=== PATIENT | male | born 1950 | race Caucasian/White ===

== ENCOUNTER 2019-02-03 10:55 | Observation (INO) ==
[2019-02-03 14:06] LABS: Basophils # 0.1 10*3/uL (0.0-0.2); Basophils % 0.6 % (0.0-0.8); Eosinophils # 0.2 10*3/uL (0.0-0.87); Eosinophils % 1.6 % (0.00-10.9); Hemoglobin 15.8 GM/DL (14.0-18.0); Immature Granulocytes % 0.4 %; Immature Granulocytes Absolute 0.04 #; Lymphocytes # 3.1 10*3/uL (1.4-4.0); Lymphocytes % 27.8 % (21.2-54.2); Mean Corpuscular HGB Conc 32.2 GM/DL (32-36); Mean Platelet Volume 11.5 FL (9.6-12.0); Monocytes % 6.3 % (1.7-12.7); Neutrophils % 63.3 % (38.7-73.9); Platelet Count 193 T/CUMM (130-400); Red Blood Count 5.57 MC/CUMM (3.8-5.5); Red Cell Distribution Width 14.4 % (9.3-17.3); White Blood Count 11.3 T/CUMM (4-12)
[2019-02-03 14:17] LABS: PT Patient Result 10.8 SECS (9.6-12.2); Partial Thromboplastin Time 28.3 SECS (20.8-36.0)
[2019-02-03 14:27] LABS: Alanine Aminotransferase 35 U/L (16-61); Alkaline Phosphatase 80 U/L (45-117); Aspartate Amino Transferase 24 U/L (0-37); Bilirubin,Total < 0.39 MG/DL (0.2-1.0); Blood Urea Nitrogen 15 MG/DL (7-18); CKMB % 2.7 %; Estimated Glom Filtration Rate 112 ML/MIN; Glucose 69 MG/DL (74-106); Total Protein 7.9 G/DL (6.4-8.3); Troponin I < 0.015 NG/ML (0.00-0.045)
[2019-02-03] MEDS ORDERED: NICOTINE 21 MG/24 HR PATCH TRANSDERM PRN (16:45)
[2019-02-03] MEDS ORDERED: DEXTROSE 50% 25 GM/50 ML VIAL IV PRN (16:45)
[2019-02-03] MEDS ORDERED: GLUCAGON 1 MG VIAL IM PRN (16:45)
[2019-02-03] MEDS ORDERED: ACETAMINOPHEN 325 MG TABLET PO PRN (16:45)
[2019-02-03] MEDS ORDERED: hydrALAZINE 20 MG/1 ML VIAL IV PRN (16:54)
[2019-02-03] MEDS ORDERED: SODIUM CHLORIDE 0.9% 1,000 ML IV STA (16:58)
[2019-02-03] MEDS ORDERED: SODIUM CHLORIDE 0.45% 1,000 ML IV SCH (17:00)
[2019-02-03 17:17] LABS: Risk Ratio 4.4; Thyroid Stimulating Hormone 1.99 uIU/ml (0.358-3.74); VLDL CHOLESTEROL 41.6 MG/DL
[2019-02-03 19:32] LABS: CKMB % 2.8 %; Troponin I < 0.015 NG/ML (0.00-0.045)
[2019-02-03] MEDS: amLODIPine 10 MG TABLET PO SCH (20:33)
[2019-02-03] MEDS ORDERED: ENOXAPARIN 40 MG/0.4 ML SYRINGE SUBCUT SCH (21:00)
[2019-02-03] MEDS ORDERED: SODIUM CHLORIDE 0.9% 1,000 ML IV ONE (21:00)
[2019-02-03 22:56] LABS: CKMB % 2.8 %; Troponin I < 0.015 NG/ML (0.00-0.045)
[2019-02-04 04:44] LABS: Basophils # 0.1 10*3/uL (0.0-0.2); Basophils % 0.6 % (0.0-0.8); Eosinophils # 0.3 10*3/uL (0.0-0.87); Eosinophils % 2.8 % (0.00-10.9); Hematocrit 42.9 VOL% (42.0-52.0); Hemoglobin 14.1 GM/DL (14.0-18.0); Immature Granulocytes % 0.2 %; Immature Granulocytes Absolute 0.02 #; Lymphocytes # 3.2 10*3/uL (1.4-4.0); Lymphocytes % 33.2 % (21.2-54.2); Mean Corpuscular HGB Conc 32.9 GM/DL (32-36); Mean Corpuscular Volume 87.2 FL (87-102); Mean Platelet Volume 11.3 FL (9.6-12.0); Monocytes % 6.8 % (1.7-12.7); Neutrophils % 56.4 % (38.7-73.9); Platelet Count 160 T/CUMM (130-400); Red Blood Count 4.92 MC/CUMM (3.8-5.5); Red Cell Distribution Width 14.6 % (9.3-17.3); White Blood Count 9.6 T/CUMM (4-12)
[2019-02-04 04:55] LABS: Apearance,Urine CLEAR (Clear); Bilirubin,Urine Negative (Negative); Blood, Urine Negative (Negative); Glucose,Urine (UA) Negative (Negative); Ketones,Urine Negative (Negative); Nitrite,Urine Negative (Negative); Protein,Urine Negative; RBC,Urine 1 /HPF (0-4); Urine Color Colorless (Yellow); Urine Specific Gravity 1.006 (1.001-1.035); Urine Urobilinogen < 2.0 EU/DL (0.2-1.0); WBC,Urine <1 /HPF (0-6)
[2019-02-04 05:09] LABS: Alanine Aminotransferase 28 U/L (16-61); Albumin 3.5 G/DL (3.4-5.0); Alkaline Phosphatase 65 U/L (45-117); Aspartate Amino Transferase 17 U/L (0-37); Bilirubin,Total < 0.39 MG/DL (0.2-1.0); Blood Urea Nitrogen 12 MG/DL (7-18); Calcium 8.6 MG/DL (8.5-10.1); Estimated Glom Filtration Rate 117 ML/MIN; Glucose 118 MG/DL (74-106); Osmolality,Calculated 279.4 MOS/KG (273-304); Total Protein 6.5 G/DL (6.4-8.3)
[2019-02-04 05:48] LABS: CKMB % 2.9 %; Troponin I < 0.015 NG/ML (0.00-0.045)
[2019-02-04 07:16] VITALS: BP 140/57
[2019-02-04] MEDS: amLODIPine 10 MG TABLET PO SCH (08:21)
[2019-02-04] MEDS ORDERED: PANTOPRAZOLE 40 MG TABLET PO SCH (09:00)
== END 2019-02-04 09:43 | disposition home or self-care (01) ==
LOC: N.EDINP 10:55 → N.ED 10:55 → SUATTDRO 16:45 → N.EDINP 19:11 → N.2W 19:26
PROVIDERS: ADMIT Family Medicine; ATTEND Phlebology

== ENCOUNTER 2019-05-09 06:35 | Inpatient (IN) ==
[2019-05-03 13:47] LABS: Basophils # 0.1 10*3/uL (0.0-0.2); Basophils % 0.7 % (0.0-0.8); Eosinophils # 0.2 10*3/uL (0.0-0.87); Eosinophils % 2.3 % (0.00-10.9); Hemoglobin 14.8 GM/DL (14.0-18.0); Immature Granulocytes % 0.2 %; Immature Granulocytes Absolute 0.02 #; Lymphocytes # 2.5 10*3/uL (1.4-4.0); Lymphocytes % 27.7 % (21.2-54.2); Mean Corpuscular HGB Conc 32.9 GM/DL (32-36); Mean Corpuscular Volume 87.9 FL (87-102); Mean Platelet Volume 11.8 FL (9.6-12.0); Monocytes % 8.3 % (1.7-12.7); Neutrophils % 60.8 % (38.7-73.9); Platelet Count 160 T/CUMM (130-400); Red Blood Count 5.12 MC/CUMM (3.8-5.5); Red Cell Distribution Width 14.1 % (9.3-17.3); White Blood Count 9.1 T/CUMM (4-12)
[2019-05-03 14:08] LABS: Alanine Aminotransferase 38 U/L (16-61); Albumin 3.8 G/DL (3.4-5.0); Alkaline Phosphatase 69 U/L (45-117); Aspartate Amino Transferase 26 U/L (0-37); Bilirubin,Total < 0.39 MG/DL (0.2-1.0); Blood Urea Nitrogen 14 MG/DL (7-18); Calcium 8.6 MG/DL (8.5-10.1); Estimated Glom Filtration Rate 98 ML/MIN; Glucose 184 MG/DL (74-106); Osmolality,Calculated 275.1 MOS/KG (273-304); Total Protein 7.5 G/DL (6.4-8.3)
[~2019-05-09 06:35] MED LIST: ceFAZolin 1,000 MG in SYRINGE 1 EACH IV ONE
[2019-05-09] MEDS ORDERED: BUPIVACAINE MPF 0.5% /EPI 30 ML VIAL ONE (06:38)
[2019-05-09] MEDS ORDERED: NITROGLYCERIN DRIP 0 MG/0 ML BOTTLE IV ONE (07:05)
[2019-05-09] MEDS ORDERED: HEPARIN/NACL 0.9% 2 UNITS/ML 500 ML IV ONE (07:08)
[2019-05-09] MEDS ORDERED: HEPARIN 5,000 UNIT/1 ML VIAL ONE (07:30)
[2019-05-09] MEDS ORDERED: LIDOCAINE 1% 20 ML VIAL ONE (07:31)
[2019-05-09] MEDS ORDERED: ceFAZolin 1,000 MG VIAL ONE (07:52)
[2019-05-09] MEDS ORDERED: MIDAZOLAM 2 MG/2 ML VIAL ONE ×2 (08:13→10:34)
[2019-05-09] MEDS ORDERED: LACTATED RINGERS 1,000 ML IV SCH (08:30)
[2019-05-09] MEDS ORDERED: SUGAMMADEX 200 MG/2 ML VIAL IV ONE (09:45)
[2019-05-09] MEDS ORDERED: PROMETHAZINE 25 MG/1 ML VIAL IM PRN (09:55)
[2019-05-09] MEDS ORDERED: HYDROmorphone 2 MG/1 ML VIAL IV PRN ×2 (09:55)
[2019-05-09] MEDS ORDERED: GLUCAGON 1 MG VIAL IM PRN ×2 (09:55→10:02)
[2019-05-09] MEDS ORDERED: ONDANSETRON 4 MG/2 ML VIAL IV PRN (09:55)
[2019-05-09] MEDS ORDERED: oxyCODONE/ACETAMINOPHEN 5-325 MG TABLET PO PRN ×2 (09:55)
[2019-05-09] MEDS ORDERED: DEXTROSE 50% 25 GM/50 ML VIAL IV PRN (09:55)
[2019-05-09] MEDS ORDERED: NALOXONE 0.4 MG/ML VIAL IV PRN (09:55)
[2019-05-09] MEDS ORDERED: PHENYLEPHRINE DRIP 20 MG/250 ML PREMIX IV ONE (10:33)
[2019-05-09] MEDS ORDERED: propofoL 200 MG/20 ML VIAL IV ONE (10:33)
[2019-05-09] MEDS ORDERED: LIDOCAINE 2% 5 ML VIAL ONE (10:33)
[2019-05-09] MEDS ORDERED: SEVOFLURANE 1 UNIT/15 MINUTE INH ONE (10:34)
[2019-05-09] MEDS ORDERED: DEXAMETHASONE 4 MG/1 ML VIAL ONE (10:34)
[2019-05-09] MEDS ORDERED: ONDANSETRON 4 MG/2 ML VIAL ONE (10:34)
[2019-05-09] MEDS ORDERED: GLYCOPYRROLATE 0.4 MG/2 ML VIAL ONE (10:34)
[2019-05-09] MEDS ORDERED: HEPARIN 10,000 UNIT/10 ML VIAL ONE (10:34)
[2019-05-09] MEDS ORDERED: fentaNYL 100 MCG/2 ML VIAL ONE (10:34)
[2019-05-09] MEDS ORDERED: ROCURONIUM 100 MG/10 ML VIAL IV ONE (10:35)
[2019-05-09] MEDS ORDERED: PHENYLEPHRINE 1 MG/10 ML SYRINGE IV ONE (10:35)
[2019-05-09] MEDS ORDERED: PROTAMINE SULFATE 50 MG/5 ML VIAL IV ONE (10:35)
[2019-05-09] MEDS ORDERED: SODIUM CHLORIDE 0.9% 1,000 ML IV ONE (10:35)
[2019-05-09] MEDS: LACTATED RINGERS 1,000 ML IV SCH ×2 (10:39→21:25)
[2019-05-09] MEDS ORDERED: DEXTROSE 10% 250 ML BAG IV PRN (12:04)
[2019-05-09] MEDS ORDERED: INSULIN NPH/REGULAR 70/30 100 UNIT/ML SUBCUT SCH (19:00)
[2019-05-09] MEDS: CLOTRIMAZOLE/BETAMETHASONE CREAM 15 GM TUBE TOP SCH (21:29)
[2019-05-09] MEDS: NYSTATIN/TRIAMCINOLONE CREAM 15 GM TUBE TOP SCH (21:29)
[2019-05-09] MEDS: PHENYLEPHRINE DRIP 40 MG/250 ML PREMIX IV SCH (21:34)
[2019-05-09] MEDS: NITROPRUSSIDE 100 MG in DEXTROSE 5% 250 ML IV SCH (21:34)
[2019-05-09] MEDS ORDERED: ROSUVASTATIN 20 MG TABLET PO SCH (22:00)
[2019-05-10] MEDS: LACTATED RINGERS 1,000 ML IV SCH (08:15)
[2019-05-10] MEDS: CLOTRIMAZOLE/BETAMETHASONE CREAM 15 GM TUBE TOP SCH ×2 (08:34→08:43)
[2019-05-10] MEDS: NYSTATIN/TRIAMCINOLONE CREAM 15 GM TUBE TOP SCH ×2 (08:34→08:43)
[2019-05-10] MEDS: METOPROLOL SUCCINATE XL 100 MG TABLET PO SCH ×2 (08:38→10:14)
[2019-05-10] MEDS ORDERED: TERBINAFINE 250 MG TABLET PO SCH (09:00)
[2019-05-10] MEDS ORDERED: INSULIN NPH/REGULAR 70/30 100 UNIT/ML SUBCUT SCH (09:00)
[2019-05-10] MEDS ORDERED: ASPIRIN EC 81 MG TABLET PO SCH ×2 (09:00)
[2019-05-10] MEDS ORDERED: CLOPIDOGREL 75 MG TABLET PO SCH (09:00)
[2019-05-10] MEDS ORDERED: LOSARTAN 50 MG TABLET PO SCH (09:00)
[2019-05-10] MEDS ORDERED: MELOXICAM 7.5 MG TABLET PO SCH (09:00)
[2019-05-10] MEDS: PHENYLEPHRINE DRIP 40 MG/250 ML PREMIX IV SCH (09:38)
[2019-05-10] MEDS: NITROPRUSSIDE 100 MG in DEXTROSE 5% 250 ML IV SCH (09:38)
[2019-05-10 12:13] VITALS: BP 128/64
== END 2019-05-10 14:30 | disposition home or self-care (01) | DRG 39 ==
LOC: N.OR 06:35 → N.SDSINP 06:36 → EDSTATUS 10:30 → N.ICU 11:31 → N.4E 05-10 10:39
PROVIDERS: ADMIT Surgery; ATTEND Surgery